=== PATIENT | female | born 1945 | race Caucasian/White ===

== ENCOUNTER 2020-01-01 14:24 | Outpatient (CLI) | payer MEDICARE, BC, SELFPAY ==
--- NOTE | ~2020-01-01 | CT_ITS ---
EXAMINATION: CT lung screening DATE: 01/01/2020 15:36 INDICATION: Personal history of tobacco dependence, current smoker with 40 pack year history TECHNIQUE: Computed tomography (CT) of the chest was performed without intravenous contrast. The dose -length product (DLP) was 157.29 mGy-cm. Automated exposure control and iterative reconstruction tech [employer] were employed. COMPARISON: 01/02/2019 FINDINGS: No suspicious pulmonary nodules are identified. There is mild dependent atelectasis. No foc al airspace opacities are identified. No pathologically enlarged thoracic lymph nodes are identified. The heart size is normal. Again noted is chronic anterior wedging in multiple lower thoracic vertebr al bodies without significant change. IMPRESSION: 1. Lung-RADS category 1: Negative. Continue annual screening with noncontrast low-dose chest CT in 12 months. Reviewed, dictated and finalized at location A. IMPRESSION: 1. Lung-RADS category 1: Negative. Continue annual screening with noncontrast l ow-dose chest CT in 12 months.
--- NOTE | ~2020-01-01 | MM_ITS ---
EXAMINATION: MM screening geraldine BI w ruddy HISTORY: Screening mammogram TECHNIQUE: Craniocaudal and mediolateral oblique 3-D tomosynthesis images were obtained and synthetic 2-D images were generated. CAD analysis was submitted and interpreted. COMPARISON: 11/14/2018, 07/27/2017, 06/30/2015 bilateral digital screening mammogram examinations BREAST PARENCHYMAL COMPOSITION: There are scattered areas of fibroglandular density. FINDINGS: There is no evidence of suspicious mass, calcification, or architectural distortion to sugg est malignancy in either breast. There has been no suspicious interval change. IMPRESSION: 1. No mammographic evidence of malignancy. 2. Recommend routine screening mammography in one year. BI-RADS Category 1: Negative Reviewed, dictated and finalized at location A.
--- NOTE | ~2020-01-01 | DEXA_ITS ---
Bone Density Report Name: Aruna Hernandez Age: 74 Sex: Female Ethnicity: White Date of : 1945 Indication: postmenopausal; height loss; Referring Provider: WESTON BRADLEY Study: Bone densitometry was performed. Exam Date: January 01, 2020 Accession number: [id number] Bone Density: Region BMD T-score Z-score Classification AP Spine (L1, L2, L3) 0.814 -1.9 0.3 Osteopenia Femoral Neck (Left) 0.673 -1.6 0.3 Osteopenia Total Hip (Left) 0.972 0.2 1.9 Normal Total Hip Bilateral Avg 0.938 -0.1 1.6 Normal Femoral Neck (Right) 0.746 -0.9 1.0 Normal Total Hip (Right) 0.904 -0.3 1.3 Normal World Health Organization criteria for BMD impression classify patients as: Normal (T-score at or above -1.0), Osteopenia (T-score between -1.0 and -2.5), or Osteoporosis (T-score at or below -2.5). 10-year Fracture Risk(1): Major Osteoporotic Fracture 9.7% Hip Fracture 1.5% Reported Risk Factors: [place] (), Neck BMD=0.673, BMI=36.6 (1) FRAX(R) Version 3.08. Fracture probability calculated for an untreated patient. Fracture probability may be lower if the patient has received treatment. Clinical Information Provided by Patient: Has used the following medications: Vitamin D, Calcium Patient maximum height was 66 Menopause Age: 52 No regular weight bearing exercise Drinks caffeinated beverages Onset of menses at age 16 Number of children 3 Impression: The patient has low bone mass, based on the Total Spine T-score. The patient has an estimated ten-year risk of hip fracture of 1.5% and an estimated ten-year risk of major fracture of 9.7%, based on the WHO FRAX algorithm. Discussion: BONE DENSITY IS LOW AT ONE OR MORE SKELETAL SITES. This patient's lowest T-score is low at one or more skeletal sites. It meets the World Health Organization's (WHO) criteria for ?low bone mass? (T-score between -1.0 and -2.5). The patient's 10-year risk of fracture as calculated by FRAX is less than the threshold where pharmacological therapy is recommended by the National Osteoporosis Foundation (NOF). However, all treatment decisions require clinical judgment and consideration of individual patient factors, including patient preferences, comorbidities, previous drug use, risk factors not captured in the FRAX model (e.g., frailty, falls, vitamin D deficiency, increased bone turnover, interval significant decline in bone density) and possible under or overestimation of fracture risk by FRAX. The patient should follow a healthful lifestyle (good nutrition with adequate calcium and vitamin D, and appropriate weight-bearing exercise). Follow-Up: Consider repeating this study in 2 to 3 years to reassess this patient's status, or sooner if there is some new clinical indication. Reported by: NOEMY on 01/01/2020 3:09:00 PM. ____
== END 2020-01-01 14:25 | disposition home or self-care (01) ==
LOC: ANHIMG 14:32
PROVIDERS: PCP Internal Medicine; Visit Provider Nurse Practitioner
DX: Z12.2 Encounter for screening for malignant neoplasm of respiratory organs (principal); Z87.891 Personal history of nicotine dependence; Z12.31 Encounter for screening mammogram for malignant neoplasm of breast; M85.852 Other specified disorders of bone density and structure, left thigh
CPT/HCPCS: 77063; 77067; 77080; G0297

== ENCOUNTER 2020-10-28 13:52 | Outpatient (CLI) | payer MEDICARE, BC, SELFPAY ==
--- NOTE | ~2020-10-28 | CT_ITS ---
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 TECHNIQUE: High resolution computed tomography (CT) of the right knee was performed without intraveno us contrast. Additional sagittal and coronal reconstructions were performed. Automated exposure contr ol and iterative reconstruction technique were employed. The dose-length product was 427.79 mGy-cm. COMPARISON: Right knee radiographs dated 10/21/2020 FINDINGS: Right total knee arthroplasty with patellar resurfacing which appears in near anatomic alignment. No fracture. There is thin rim of lucency measuring <1.5-2 mm in maximal thickness at the bone cement in terface of the femoral component which is within normal limits. There is mild osteolysis along the an terior rim of the medial tray of the tibial component and along the lateral margin of the lateral tra y of the tibial component. No evident lucency along the majority of the bone cement interface of the tibial component with small rim of lucency measuring <1-1.5 mm in maximal thickness along portions of the cement at the anterior aspect of the medial tray which also remains within normal limits. There appear to be small regions of ostial lysis deep to the caudal-most and medial sided of the 3 fixation process of the patellar component which appears relatively subtle due to the metallic streak artifac t from the tibial component. Thin sclerotic margins to the lytic regions can be better appreciated on the sunrise view of the prior radiographs. The lucent region surrounding the caudal-most post measur es approximately 8 x 8 mm in maximal transaxial dimensions. The lucent region around the medial post measures approximately 13 x 7 mm. This does raise some concern for potential loosening of the patella r component. Very small right knee joint effusion at the suprapatellar pouch. Sagittally oriented jennifer gical scar in the subcutaneous tissues anterior to the knee. Soft tissues are otherwise unremarkable. IMPRESSION: 1. Right total knee arthroplasty with patellar resurfacing with no findings to suggest loosening of t he femoral or tibial components. There are however small regions of osteolysis surrounding 2 of the p osts of the patellar component which does raise some concern for loosening. Reviewed, dictated and finalized at location A. IMPRESSION: 1. Right total knee arthroplasty with patellar resurfacing with no findings to suggest loosening of the femoral or tibial components. There are however small regions of osteolysis surrounding 2 of the posts of the patellar component whic h does raise some concern for loosening.
== END 2020-10-28 13:53 | disposition home or self-care (01) ==
PROVIDERS: PCP Internal Medicine; Visit Provider Orthopaedic Surgery
DX: T84.84XA Pain due to internal orthopedic prosthetic devices, implants and grafts, initial encounter (principal); Z96.651 Presence of right artificial knee joint
CPT/HCPCS: 73700

== ENCOUNTER 2020-11-04 16:31 | Outpatient (NON) | payer MEDICARE, BC, SELFPAY | END 2020-11-04 16:32 | disposition home or self-care (01) | LOC: ANHLAB 16:35 | PROVIDERS: PCP Internal Medicine; Visit Provider Orthopaedic Surgery | DX: T84.84XA Pain due to internal orthopedic prosthetic devices, implants and grafts, initial encounter (principal) | CPT/HCPCS: 87070; 87075; 87205 ==

== ENCOUNTER → 2021-01-27 13:37 | Outpatient (CLI) | payer MEDICARE, BC, SELFPAY ==
--- NOTE | ~2021-01-27 | MM_ITS ---
EXAMINATION: MM screening geraldine BI w ruddy HISTORY: Screening TECHNIQUE: Craniocaudal and mediolateral oblique 3-D tomosynthesis images were obtained and synthetic 2-D images were generated. CAD analysis was submitted and interpreted. COMPARISON: Comparison to multiple prior studies sequentially, with oldest reviewed study dated 10/2012. BREAST PARENCHYMAL COMPOSITION: There are scattered areas of fibroglandular density. FINDINGS: There are bilateral periareolar asymmetries. There are no suspicious calcifications or arch itectural distortion. IMPRESSION: 1. Bilateral breast asymmetries in the periareolar locations. 2. Additional mammographic views and possible breast ultrasound are recommended. BI-RADS Category 0: Incomplete: Needs additional imaging evaluation. Reviewed, dictated and finalized at location A. IMPRESSION: 1. Bilateral breast asymmetries in the periareolar locations. 2. Additional mammographic views and possible breast ultrasound are recommended . BI-RADS Category 0: Incomplete: Needs additional imaging evaluation.
== END ==
PROVIDERS: Visit Provider Nurse Practitioner
DX: Z12.31 Encounter for screening mammogram for malignant neoplasm of breast (principal); R92.8 Other abnormal and inconclusive findings on diagnostic imaging of breast
CPT/HCPCS: 77063; 77067

== ENCOUNTER → 2021-03-03 09:01 | Outpatient (CLI) | payer MEDICARE, BC, SELFPAY ==
--- NOTE | ~2021-03-03 | MM_ITS ---
EXAMINATION: MM diagnostic geraldine BI w ruddy HISTORY: Bilateral periareolar asymmetries on screening mammogram TECHNIQUE: Additional 3-D tomosynthesis images of the breasts were performed and synthetic 2-D images were generated. CAD analysis was submitted and interpreted. COMPARISON: 01/27/2021, 01/01/2020, 11/14/2018 BREAST PARENCHYMAL COMPOSITION: There are scattered areas of fibroglandular density. FINDINGS: There is a return to baseline fibroglandular appearance with spot compression of the breast s in the areas questioned on screening mammogram. IMPRESSION: 1. No mammographic evidence of malignancy. 2. Recommend routine screening mammography in one year. BI-RADS Category 1: Negative Reviewed, dictated and finalized at location A.
== END ==
PROVIDERS: PCP Internal Medicine; Visit Provider Nurse Practitioner
DX: R92.8 Other abnormal and inconclusive findings on diagnostic imaging of breast (principal)
CPT/HCPCS: 77062; 77066; G0279

== ENCOUNTER 2021-04-15 16:10 | Emergency (ER) | payer MEDICARE, BC, SELFPAY ==
--- NOTE | ~2021-04-15 | XR_ITS ---
EXAMINATION: XR chest 1V portable EXAM DATE: 04/15/2021 16:41 INDICATION: shortness of breath, CP/ Bodyaches X1 Day TECHNIQUE: Frontal and lateral projections of the chest obtained and reviewed. Comparison is made to prior examination from 09/12/18. FINDINGS: The lungs are clear. There are no pleural effusions. There is cardiomegaly There is no p neumothorax suspected. The bones and soft tissues are unremarkable. IMPRESSION: Cardiomegaly. Reviewed, dictated and finalized at location A. IMPRESSION: Cardiomegaly.
[2021-04-15 16:22] VITALS: BP 170/90; PULSE 76; RESP 19; TEMP 37.6; O2SAT 97
[2021-04-15 16:42] VITALS: PULSE 70
[2021-04-15 16:44] VITALS: BP 148/64; PULSE 72; RESP 18; O2SAT 97
[2021-04-15 16:51] LABS: Basophils Percent Auto 0.3 % (0.2-1.2); Eosinophils Percent Auto 0.4 % (0-4.4); Hematocrit 38.1 % (37.0-47.0); Hemoglobin 12.7 g/dL (12.0-15.0); Immature Granulocyte Absolute 0.04 K/mm3 (0.00-0.031); Immature Granulocyte Percent A 0.4 % (0-0.5); Lymphocytes Absolute Auto 0.92 K/mm3 (0.9-3.2); Lymphocytes Percent Auto 8.3 % (18.3-44.2); Mean Corpuscular HGB Conc 33.3 g/dl (32-36); Mean Corpuscular Hemoglobin 30.2 pg (26-34); Mean Corpuscular Volume 90.5 fl (80-100); Mean Platelet Volume 10.3 fl (7.4-10.4); Monocytes Absolute Auto 0.8 K/mm3 (0.1-0.6); Monocytes Percent Auto 7.5 % (2.6-8.5); Neutrophils Absolute Auto 9.2 K/mm3 (1.3-6.7); Neutrophils Percent Auto 83.1 % (45.5-73.1); Platelet Count Result 239 k/mm3 (150-375); Red Blood Count 4.21 M/mm3 (4.2-5.4); Red Cell Distribution Width 12.4 % (11.5-14.5); White Blood Count 11.1 K/mm3 (4.5-10.0)
[2021-04-15] MEDS: SODIUM CHLORIDE 0.9% IV 1,000 ML 999 ML IV CONT (16:56)
[2021-04-15 16:59] LABS: Alanine Aminotransferase 19 U/L (4-35); Albumin Level 4.6 g/dL (3.5-5.1); Alkaline Phosphatase 107 U/L (38-126); Anion Gap 8 mmol/L (8-16); Aspartate Amino Transferase 38 U/L (14-36); Bilirubin,Total 1.3 mg/dL (0.2-1.3); Blood Urea Nitrogen 14 mg/dL (7-17); Carbon Dioxide 25 mmol/L (22-30); Chloride 104 mmol/L (98-107); Estimated CRCL calculation 77 ml/min; Estimated Glomerular Filt Rate > 60; Glucose 116 mg/dL (65-110); Lipase 47 U/L (23-300); Magnesium 1.8 mg/dL (1.6-2.3); Potassium 3.9 mmol/L (3.4-5.0); Sodium 137 mmol/L (137-145)
[2021-04-15 17:03] LABS: INR 0.9; Prothrombin Time 11.9 Seconds (11.1-14.7)
[2021-04-15 17:04] LABS: Partial Thromboplastin Time 26.5 SECONDS (22.3-36.8)
[2021-04-15 17:10] LABS: Troponin I < 0.012 ng/mL (0.000-0.034)
--- NOTE | 2021-04-15 17:22 | ED.WEAKNESS ---
HPI - Weakness General Chief complaint: Weakness Stated complaint: chest pain, dizziness, malaise Time Seen by Provider: 04/15/21 16:18 History of Present Illness HPI Narrative: 75 year old female complains of weakness, fatigue and pleuritic chest pain for 2 days. Patient woke up this morning and all symptoms worse. No fever, no vomiting, no shortness of breath, no nausea, tolerating fluids and medications. No abdominal pain, no dysuria, no flank pain, no hematuria, no leg swelling, no recent falls. Patient works at [employer] and is worried about expsosure to [employer]. Able to ambulate without difficulty, taking all medications. MD Complaint: lack of energy Related Data Home Medications Medication Instructions Recorded Confirmed aspirin 81 mg tablet,delayed 81 mg PO DAILY 06/07/19 12/31/20 release omega 3-wdu-aip-fish oil 1,000 mg 1 cap PO BID 06/07/19 12/31/20 (120 mg-180 mg) capsule glucosamine-chondroitin 250 mg-200 2 tablet PO BID tablet 12/18/19 12/31/20 mg tablet zinc gluconate-vitamin C [zinc] PO 10/21/20 12/31/20 Allergies Allergy/AdvReac Type Severity Reaction Status Date / Time estrogens, conjugated Allergy Unknown Rash Verified 12/31/20 11:01 simvastatin Allergy Unknown Muscle Pain Verified 12/31/20 11:01 Review of Systems Review of Systems: CONSTITUTIONAL: no fever, no weight loss, no confusion EYES: no vision changes, no eye pain ENT: no rhinorrhea, no sore throat, no difficulty swallowing CARDIOVASCULAR: no chest pain, no leg edema, no palpitations RESPIRATORY: positive for cough, no shortness of breath, no hemoptysis GASTROINTESTINAL: no abdominal pain, no nausea, no vomiting, no diarrhea GENITOURINARY: no flank pain, no dysuria, no hematuria SKIN: no rash, no jaundice MUSCULOSKELETAL: no back pain, no trauma. NEUROLOGIC: No headache, no dizziness, no focal weakness PSYCHIATRIC: No hallucinations, no suicidal ideation PMFSH Past Medical History Medical History Abdominal pain Anxiety Chest tightness COVID-19 Dizziness Light headedness Painful total knee replacement, right Screening for breast cancer Screening for colon cancer Screening for osteoporosis SOB (shortness of breath) Urinary frequency Ventral hernia without obstruction or gangrene Wears glasses Surgical History Surgical History History of appendectomy 1963 History of hernia repair 2018 History of knee replacement September 2014 History of vascular surgery 2014 Family History Family History Father Family history of heart disease in male family member before age 55 Mother Family history of heart disease in male family member before age 55 Other Arthritis Cerebrovascular accident Family history of cardiovascular disease Family history of malignant neoplasm Family history of malignant neoplasm of breast Heart disease Hypertension Social History Social History Smoking packs per day: 1 Smoking cigarettes per day: 20.0 Years smoked: 50 Smoking pack-years: 50.00 Smoking status: Former smoker Smoking end date: 08/12/16 Alcohol intake: current Alcohol use details: social Substance use: never Substance use type: does not use Exam Narrative: General: alert, afebrile, answering all questions appropriately Head: normocephalic, atraumatic Eyes: EOMI bilaterally, anicteric, no injection ENT: moist mucous membranes, oropharynx patent, no rhinorrhea Neck: supple, trachea midline, no JVD Chest: equal chest rise bilaterally, no chest wall trauma noted Lungs: clear to auscultation bilaterally, respirations unlabored CV: regular rate, no CLIFF B, calf size equal bilaterally Abd: soft, non-distended, non-tender, no rebound, no gaurding Back: no lumbar bony tenderness. paraspinal mus
--- NOTE | 2021-04-15 17:23 | ECG_ITS ---
Measurements Intervals [place] Rate: 76 P: 26 [place]: 179 QRS: -8 QRSD: 93 T: 15 QT: 364 QTc: 410 Interpretive Statements SINUS RHYTHM VOLTAGE CRITERIA FOR LVH BASELINE ARTIFACT- I, II, III, AVR, AVL, AVF, V4 BORDERLINE ECG Electronically Signed On 04-15-2021 19:12:18 CDT by Chiki Santoro D.O.
[2021-04-15 17:28] LABS: Add Urine Microscopic? YES; Appearance Urine Clear (Clear); Bacteria Urine Trace /hpf; Bilirubin Urine Negative (Negative); Blood Urine 3+ (Negative); Color Urine Yellow (Yellow); Glucose Urine UA Negative (Negative); Ketones Urine Negative (Negative); Leukocyte Esterase Ur Trace LEU/UL (Negative); Mucus Urine Rare /lpf; Nitrate Urine Negative (Negative); Protein Urine Negative (Negative); Specific Grav Ur 1.014 (1.001-1.035); Urobilinogen Urine Negative mg/dL (<2.0)
[2021-04-15 18:04] VITALS: BP 170/90; PULSE 88; RESP 18; O2SAT 98
[2021-04-16 18:04] LABS: SARS-CoV-2 RNA PCR Negative
== END 2021-04-15 18:10 | disposition home or self-care (01) ==
PROVIDERS: Emergency Provider Emergency Medicine; PCP Internal Medicine
DX: T73.2XXA Exhaustion due to exposure, initial encounter (principal); Z20.822 Contact with and (suspected) exposure to COVID-19; I10 Essential (primary) hypertension; K21.9 Gastro-esophageal reflux disease without esophagitis; E78.00 Pure hypercholesterolemia, unspecified; Z86.16 Personal history of COVID-19; Z96.651 Presence of right artificial knee joint; Z79.82 Long term (current) use of aspirin; Z87.891 Personal history of nicotine dependence; R94.31 Abnormal electrocardiogram [ECG] [EKG]
CPT/HCPCS: 36415; 71045; 80053; 81001; 83690; 83735; 84484; 85025; 85610; 85730; 87804; 93005; 96360; 99284; C9803; J7030; U0003; U0005

== ENCOUNTER → 2021-04-18 03:40 | Outpatient (CLI) | payer MEDICARE, BC, SELFPAY ==
[2021-04-18 17:41] LABS: SARS-CoV-2 RNA PCR Negative
== END ==
PROVIDERS: PCP Internal Medicine; Visit Provider Internal Medicine
DX: R68.89 Other general symptoms and signs (principal); Z20.822 Contact with and (suspected) exposure to COVID-19
CPT/HCPCS: C9803; U0003; U0005

== ENCOUNTER → 2021-07-31 01:58 | Outpatient (CLI) | payer MEDICARE, BC, SELFPAY ==
[2021-07-31 21:12] LABS: SARS-CoV-2 RNA PCR Positive
== END ==
PROVIDERS: PCP Internal Medicine; Visit Provider Internal Medicine
DX: U07.1 COVID-19 (principal)
CPT/HCPCS: C9803; U0003; U0005

== ENCOUNTER 2021-10-14 10:09 | Outpatient (CLI) | payer MEDICARE, BC, SELFPAY ==
--- NOTE | ~2021-10-14 | XR_ITS ---
EXAMINATION: XR UGI w barium swallow EXAM DATE: 10/14/2021 10:51 INDICATION: R13.10 - Dysphagia, unspecified. TECHNIQUE: Standard single and double contrast barium esophagram and upper GI examination was perform ed by radiologist Dio Mccormack M.D. Pulsed dose reduction fluoroscopy was used with fluoroscopic time of 0.6 minutes. The DAP for this procedure was 1.6 Gycm2. A total of 114 images obtained for the e xam. Comparison is made to prior examination from 05/15/2010. FINDINGS: The pharynx is symmetric and without evidence of mass lesion or mucosal irregularity. Ther e is no esophageal stricture, diverticulum or mass identified. There is small sliding gastroesophage al hiatal hernia. Reflux was not specifically demonstrated on this exam. The stomach has a normal appearance without evidence of mass lesion, ulceration or filling defect. T here is normal rugal fold pattern. The duodenum and duodenal sweep are normal in appearance. IMPRESSION: Small sliding gastroesophageal hiatal hernia. Reviewed, dictated and finalized at location A.
== END 2021-10-14 10:10 | disposition home or self-care (01) ==
LOC: ANHIMG 10:10
PROVIDERS: PCP Internal Medicine; Visit Provider Internal Medicine
DX: R13.10 Dysphagia, unspecified (principal); K44.9 Diaphragmatic hernia without obstruction or gangrene
CPT/HCPCS: 74240

== ENCOUNTER → 2022-07-10 11:51 | Outpatient (CLI) | payer MEDICARE, BC, SELFPAY ==
--- NOTE | ~2022-07-10 | MM_ITS ---
EXAMINATION: MM screening geraldine BI w ruddy HISTORY: Screening mammogram TECHNIQUE: Craniocaudal and mediolateral oblique 3-D tomosynthesis images were obtained and synthetic 2-D images were generated. CAD analysis was submitted and interpreted. COMPARISON: 03/03/2021 bilateral diagnostic mammogram 01/27/2021, 01/01/2020 bilateral screening mammogram BREAST PARENCHYMAL COMPOSITION: There are scattered areas of fibroglandular density. FINDINGS: There is no evidence of suspicious mass, calcification, or architectural distortion to sugg est malignancy in either breast. There has been no suspicious interval change. IMPRESSION: 1. No mammographic evidence of malignancy. 2. Recommend routine screening mammography in one year. BI-RADS Category 1: Negative Reviewed, dictated and finalized at location A. CRIPTION CLERK LENSES
== END ==
PROVIDERS: PCP Internal Medicine; Visit Provider Internal Medicine
DX: Z12.31 Encounter for screening mammogram for malignant neoplasm of breast (principal)
CPT/HCPCS: 77063; 77067

== ENCOUNTER → 2023-08-20 12:18 | Outpatient (CLI) | payer MEDICARE, BC, SELFPAY ==
--- NOTE | ~2023-08-20 | MM_ITS ---
EXAMINATION: MM screening geraldine BI w ruddy HISTORY: Screening mammogram TECHNIQUE: Craniocaudal and mediolateral oblique 3-D tomosynthesis images were obtained and synthetic 2-D images were generated. CAD analysis was submitted and interpreted. COMPARISON: 07/10/2022 bilateral screening mammogram 03/03/2021 diagnostic bilateral mammogram 01/27/2021, 01/01/2020 bilateral screening mammogram examinations BREAST PARENCHYMAL COMPOSITION: There are scattered areas of fibroglandular density. FINDINGS: There is no evidence of suspicious mass, calcification, or architectural distortion to sugg est malignancy in either breast. There has been no suspicious interval change. IMPRESSION: 1. No mammographic evidence of malignancy. 2. Recommend routine screening mammography in one year. BI-RADS Category 1: Negative Reviewed, dictated and finalized at location A. ING METER SERVICER
== END ==
PROVIDERS: PCP Nurse Practitioner; Visit Provider Nurse Practitioner
DX: Z12.31 Encounter for screening mammogram for malignant neoplasm of breast (principal)
CPT/HCPCS: 77063; 77067

== ENCOUNTER 2023-08-27 00:04 | Day surgery (SDC) | payer MEDICARE, BC, SELFPAY ==
[2023-08-18 08:49] VITALS: BMI 36.1
--- NOTE | 2023-08-25 14:27 | SUR.PREOP ---
Patient called regarding upcoming procedure. Reviewed preop instructions, appointment times, and procedure prep.
--- NOTE | 2023-08-26 14:02 | PM.HPGS ---
History of Present Illness History of Present Illness Consent: Risks, benefits, and alternatives have been discussed and questions answered. Patient agrees to proceed with procedure. Chief complaint: GERD Narrative: Aruna Henrandez is a 77 year old female Referred for investigation of persistent acid reflux symptoms. she has had increasing difficulty swallowing and affect recently went to emergency room when she had food that would not go down. He did finally pass while she was in the emergency room. A CT scan was done and she was told that she has inflammation of the esophagus. Review of Systems Review of Systems: All systems reviewed & are unremarkable except as noted in HPI and below PMFSH Past Medical History Medical History Abdominal pain Anxiety Chest tightness COVID-19 Dizziness Essential (primary) hypertension Hiatal hernia with GERD History of [place] (myocardial infarction) Hypertensive chronic kidney disease with stage 1 through stage 4 chronic kidney disease, or unspecified chronic kidney disease Light headedness Obesity Other and unspecified hyperlipidemia Painful total knee replacement, right Personal history of nicotine dependence PVD (peripheral vascular disease) SOB (shortness of breath) Urinary frequency Ventral hernia without obstruction or gangrene Wears glasses Surgical History Surgical History History of appendectomy 1963 History of hernia repair 2019 History of knee replacement September 2014 History of vascular surgery 2014 Family History Family History Father Family history of heart disease in male family member before age 55 Mother Family history of heart disease in male family member before age 55 Other Arthritis Cerebrovascular accident Family history of cardiovascular disease Family history of malignant neoplasm Family history of malignant neoplasm of breast Heart disease Hypertension Social History Social History Smoking packs per day: 1 Smoking cigarettes per day: 20.0 Years smoked: 55 Smoking pack-years: 55.00 Smoking status: Former smoker Tobacco type: cigarettes Smoking end date: 08/12/16 Alcohol intake: current Alcohol use details: social Substance use: never Substance use type: does not use Lack of Transportation: No Lack of Food: Never True Current Housing: I Have Housing Concerned About Future Housing: No Difficulty Paying Gas/Electric Bills: No Difficulty Paying for Meds: No Currently Unemployed: No Education: High School Diploma/GED Difficulty w/ Childcare or Family Care: No Living arrangements: with family Spiritual care concerns: No Meds Home Medications and Allergies Home Medications Medication Instructions Recorded Confirmed Type aspirin 81 mg tablet,delayed 81 mg PO DAILY 06/07/19 08/18/23 History release (Aspir-) glucosamine HCl-vitamin D3 1,500 2 tablet PO DAILY 12/14/22 08/18/23 History mg-200 unit tablet omega-3 fatty acids 2,000 mg PO DAILY 12/14/22 08/18/23 History metoprolol succinate 50 mg See Rx Instructions .Route 08/04/23 08/27/23 Rx tablet,extended release 24 hr .COMPLEX #90 tabs ascorbic acid (vitamin C) 500 mg 500 mg PO DAILY 08/18/23 08/18/23 History capsule zinc 1 tablet PO DAILY 08/18/23 08/18/23 History lisinopril 10 mg tablet 10 mg PO DAILY #90 tabs 08/19/23 Rx pantoprazole 40 mg tablet,delayed 40 mg PO QAM #30 tabs 08/27/23 Rx release Allergies Allergy/AdvReac Type Severity Reaction Status Date / Time estrogens, conjugated Allergy Intermediate Rash Verified 08/27/23 11:15 simvastatin Allergy Intermediate Muscle Pain Verified 08/27/23 11:15 Exam Const: General: alert Orientation/consciousness: patient oriented x3 Resp: [facility]
[2023-08-27 11:15] VITALS: BP 151/74; PULSE 63; RESP 18; TEMP 36.1; O2SAT 98
[2023-08-27] MEDS: LACTATED RINGERS 1,000 ML 150 ML IV CONT (11:27)
--- NOTE | 2023-08-27 11:52 | WPDANESEPPF ---
Anes - Initial Pre Proc Eval Procedure: Operation Date: 08/27/23 13:00 Proposed Procedures p Esophagogastroduodenoscopy - Javan Torres MD Date/Time: 08/27/23 11:52 Surgeon: Javan Torres MD Pre Op Diagnosis: GERD Patient Data Age: 77 Gender: F Height: 1.63 m Weight: 98.4 kg Last Vital Signs Temp 97 F L 08/27/23 11:15 Pulse 63 08/27/23 11:15 Resp 18 08/27/23 11:15 BP 151/74 H 08/27/23 11:15 Pulse Ox 98 08/27/23 11:15 O2 Del Method Room Air 08/27/23 11:15 Allergies Allergy/AdvReac Type Severity Reaction Status Date / Time estrogens, conjugated Allergy Intermediate Rash Verified 08/27/23 11:15 simvastatin Allergy Intermediate Muscle Pain Verified 08/27/23 11:15 Home Medications Medication Instructions Recorded Confirmed Type aspirin 81 mg tablet,delayed 81 mg PO DAILY 06/07/19 08/18/23 History release (Aspir-) glucosamine HCl-vitamin D3 1,500 2 tablet PO DAILY 12/14/22 08/18/23 History mg-200 unit tablet omega-3 fatty acids 2,000 mg PO DAILY 12/14/22 08/18/23 History metoprolol succinate 50 mg See Rx Instructions .Route 08/04/23 08/27/23 Rx tablet,extended release 24 hr .COMPLEX #90 tabs ascorbic acid (vitamin C) 500 mg 500 mg PO DAILY 08/18/23 08/18/23 History capsule sucralfate 1 gram tablet 1 g PO TIDWMEAL 08/18/23 08/18/23 History zinc 1 tablet PO DAILY 08/18/23 08/18/23 History lisinopril 10 mg tablet 10 mg PO DAILY #90 tabs 08/19/23 Rx Patient hx anesthesia problems: none Family hx anesthesia problems: none Results Review: All pre-operative results and documents have been reviewed as part of the pre-operative evaluation. [facility] Past Medical History Medical History Abdominal pain Anxiety Chest tightness COVID-19 Dizziness Essential (primary) hypertension Hiatal hernia with GERD History of [place] (myocardial infarction) Hypertensive chronic kidney disease with stage 1 through stage 4 chronic kidney disease, or unspecified chronic kidney disease Light headedness Obesity Other and unspecified hyperlipidemia Painful total knee replacement, right Personal history of nicotine dependence PVD (peripheral vascular disease) SOB (shortness of breath) Urinary frequency Ventral hernia without obstruction or gangrene Wears glasses Surgical History Surgical History History of appendectomy 1962 History of hernia repair 2019 History of knee replacement September 2014 History of vascular surgery 2014 Family History Family History Father Family history of heart disease in male family member before age 55 Mother Family history of heart disease in male family member before age 55 Other Arthritis Cerebrovascular accident Family history of cardiovascular disease Family history of malignant neoplasm Family history of malignant neoplasm of breast Heart disease Hypertension Social History Social History Smoking packs per day: 1 Smoking cigarettes per day: 20.0 Years smoked: 55 Smoking pack-years: 55.00 Smoking status: Former smoker Tobacco type: cigarettes Smoking end date: 08/12/16 Alcohol intake: current Alcohol use details: social Substance use: never Substance use type: does not use Lack of Transportation: No Lack of Food: Never True Current Housing: I Have Housing Concerned About Future Housing: No Difficulty Paying Gas/Electric Bills: No Difficulty Paying for Meds: No Currently Unemployed: No Education: High School Diploma/GED Difficulty w/ Childcare or Family Care: No Living arrangements: with family Spiritual care concerns: No Anes - Eval Final PreProcedure Day of Procedure 08/27/23 11:52 Patient weight: obese Heart: regular rate and rhythm Lungs: ema
[2023-08-27 12:30] VITALS: BP 170/92; PULSE 72; RESP 22; O2SAT 96
[2023-08-27 12:40] VITALS: BP 174/96; PULSE 72; RESP 24; O2SAT 98
[2023-08-27 12:50] VITALS: BP 191/98; PULSE 68; RESP 26; O2SAT 100
--- NOTE | 2023-08-27 13:16 | SUR.PHASEII ---
1250 Dr. Fernando notified of pt blood pressure 191/98. Pt instructed to take home medication Lisinopril upon discharge as ordered by Dr. Fernando.
== END 2023-08-27 13:09 | disposition home or self-care (01) ==
PROVIDERS: PCP Nurse Practitioner; Visit Provider Internal Medicine Gastroenterology
PROC: 0DJ08ZZ Inspection of Upper Intestinal Tract, Via Natural or Artificial Opening Endoscopic (ICD-10-PCS; CPT 43235; principal; 2023-08-27 13:00)
DX: K21.00 Gastro-esophageal reflux disease with esophagitis, without bleeding (principal); K44.9 Diaphragmatic hernia without obstruction or gangrene; K22.2 Esophageal obstruction; I12.9 Hypertensive chronic kidney disease with stage 1 through stage 4 chronic kidney disease, or unspecified chronic kidney disease; N18.9 Chronic kidney disease, unspecified; F41.9 Anxiety disorder, unspecified; I25.2 Old myocardial infarction; E78.5 Hyperlipidemia, unspecified; R35.0 Frequency of micturition; E66.9 Obesity, unspecified; Z68.37 Body mass index [BMI] 37.0-37.9, adult; Z79.82 Long term (current) use of aspirin; Z98.890 Other specified postprocedural states; Z87.891 Personal history of nicotine dependence; Z86.79 Personal history of other diseases of the circulatory system; Z80.3 Family history of malignant neoplasm of breast; Z82.49 Family history of ischemic heart disease and other diseases of the circulatory system
CPT/HCPCS: 43249; 87081; 88305; C1726; J2704; J7120

== ENCOUNTER 2023-12-22 08:57 | Outpatient (CLI) | payer MEDICARE, BC, SELFPAY ==
--- NOTE | ~2023-12-22 | XR_ITS ---
Left Knee Technique: AP, lateral, and sunrise views were obtained. Clinical History: Pain Findings: No fracture or dislocation is seen. There is medial compartment narrowing. There is probabl e patellofemoral compartment narrowing with moderate osteophyte formation. There is moderate joint li ne osteophyte formation, especially medially.. Soft tissues are unremarkable. No joint effusion is se en. Impression: Moderate to advanced degenerative change of the medial and patellofemoral compartment. Mild to modera te degenerative change of the lateral compartment. Reviewed, dictated and finalized at location M. Impression: Moderate to advanced degenerative change of the medial and patellofemoral max rtment. Mild to moderate degenerative change of the lateral compartment.
== END 2023-12-22 08:58 ==
LOC: MICIMG 08:58
PROVIDERS: PCP Nurse Practitioner; Visit Provider Nurse Practitioner
DX: M17.12 Unilateral primary osteoarthritis, left knee (principal)
CPT/HCPCS: 73564

== ENCOUNTER 2024-12-16 10:36 | Outpatient (CLI) | payer MEDICARE, BC, SELFPAY ==
--- NOTE | ~2024-12-16 | MM_ITS ---
EXAMINATION: MM screening geraldine BI w ruddy HISTORY: Screening TECHNIQUE: Craniocaudal and mediolateral oblique 3-D tomosynthesis images were obtained and synthetic 2-D images were generated. CAD analysis was submitted and interpreted. COMPARISON: Comparison to multiple prior studies sequentially, with oldest reviewed study dated 12/2018. BREAST PARENCHYMAL COMPOSITION: Not dense: There are scattered areas of fibroglandular density. FINDINGS: There is no evidence of suspicious mass, calcification, or architectural distortion to sugg est malignancy in either breast. There has been no suspicious interval change. IMPRESSION: 1. No mammographic evidence of malignancy. 2. Recommend routine screening mammography in one year. BI-RADS Category 1: Negative Reviewed, dictated and finalized at location B.
== END 2024-12-16 10:37 | disposition home or self-care (01) ==
LOC: MICIMG 10:37
PROVIDERS: PCP Nurse Practitioner; Visit Provider Internal Medicine
DX: Z12.31 Encounter for screening mammogram for malignant neoplasm of breast (principal)
CPT/HCPCS: 77063; 77067

== ENCOUNTER 2025-06-08 09:13 | Emergency (ER) | payer MEDICARE, BC, SELFPAY ==
--- NOTE | ~2025-06-08 | XR_ITS ---
EXAMINATION: XR chest 2V, 06/08/2025 10:00 DOOR TO DOOR SELLING AGENT HISTORY: cough COMPARISON: No comparisons available. Technique: 2 views obtained. Findings: The lungs are clear, no effusion. No pneumothorax. Heart is normal size. Mediastinal and hilar contours are within normal limits. Bony thorax no acute abnormality. Impression: No acute cardiopulmonary abnormality. Reviewed, dictated and finalized at location P. TO DOOR SELLING AGENT Impression: No acute cardiopulmonary abnormality.
[2025-06-08 09:30] VITALS: BP 142/84; PULSE 75; RESP 16; TEMP 36.2; O2SAT 97
--- NOTE | 2025-06-08 09:41 | ED.URI ---
HPI - URI/Sore Throat General Chief Complaint: Upper Respiratory Infection Stated Complaint: Sore throat, pain in chest, can't sleep Source: patient, RN notes reviewed and old records reviewed Mode of arrival: ambulatory Limitations: no limitations History of Present Illness HPI Narrative: 79 year old female who presents to [facility] with complaints of sore throat, cough, headache, and some dizziness, and diarrhea since Wednesday. Patient reports that she called her physician and was prescribed some Amoxicillin but she doesn't feel she is getting any better. Patient reports that she has had pnumonia in the past and is afraind that is what is going on. She also wanted to be tested for strep COVID and Flu.Patient denies any shortness of breath or any fevers chills or body aches. MD elicited complaint: cough, sore throat and other (headache,diarrhea,dizziness) Onset (ago): day(s) (4 days) Severity: moderate Pain scale (0-10): 4 Able to tolerate fluids by mouth: Yes Treatments prior to arrival: other (on Amoxicillin and has taken V[facility] [place] cold medication) Related Data Home Medications ?Medication ?Instructions ?Recorded ?Confirmed ?Last Taken ?Type aspirin 81 mg tablet,delayed 81 mg PO DAILY 06/07/19 12/07/24 Unknown History release (Aspir-) glucosamine HCl-vitamin D3 1,500 2 tablet PO DAILY 12/14/22 12/07/24 Unknown History mg-200 unit tablet omega-3 fatty acids 2,000 mg PO DAILY 12/14/22 12/07/24 Unknown History ascorbic acid (vitamin C) 500 mg 500 mg PO DAILY 08/18/23 12/07/24 Unknown History capsule zinc 1 tablet PO DAILY 08/18/23 12/07/24 Unknown History turmeric 400 mg capsule mg PO 12/07/24 12/07/24 Unknown History Allergies Allergy/AdvReac Type Severity Reaction Status Date / Time estrogens, conjugated Allergy Intermediate Rash Verified 06/08/25 09:49 simvastatin Allergy Intermediate Muscle Pain Verified 06/08/25 09:49 Review of Systems Review of Systems: CONSTITUTIONAL: reports malaise, no chills, sweats, or fever. EYES: Denies visual changes, redness, or discharge. ENT: Reports rhinorrhea, congestion, sinus pain,no otalgia and +sore throat. CARDIOVASCULAR: Denies chest pain, palpitations, or edema. RESPIRATORY: Reports cough.? Denies dyspnea. GASTROINTESTINAL: Denies abdominal pain, nausea, vomiting, diarrhea SKIN: Denies rash or itching. MUSCULOSKELETAL: Denies myalgia. NEUROLOGIC: Reports headache. All systems reviewed & are unremarkable except as noted in HPI and below [facility] Past Medical History Medical History BMI 38.0-38.9,adult Obesity Ventral hernia without obstruction or gangrene Painful total knee replacement, right Anxiety Urinary frequency Abdominal pain Chest tightness SOB (shortness of breath) Wears glasses Light headedness Dizziness COVID-19 PVD (peripheral vascular disease) Essential (primary) hypertension Hiatal hernia with GERD History of [place] (myocardial infarction) Hypertensive chronic kidney disease with stage 1 through stage 4 chronic kidney disease, or unspecified chronic kidney disease Other and unspecified hyperlipidemia Personal history of nicotine dependence Surgical History Surgical History History of hernia repair 2018 History of vascular surgery 2014 History of knee replacement September 2014 History of appendectomy 1963 Family History Family History Father Family history of heart disease in male family member before age 55 Acute myocardial infarction Cerebrovascular accident Mother Family history of heart disease in male family member before age 55 Thyroid activity decreased Obesity Sibling , 79 Covid-19 Lymphedema Breast cancer Sibling Rheumatic fever Other Arthritis Family history of cardiovascular disease Family history of malignant neoplasm Family history of malignant neoplasm of breast Heart disease Hypertension Social History Social History Smoking packs per day: 1 Smoking cigarettes per day: 20.0 Years smoked: 55 Smoking pack-years: 55.00 Smoking status: Former smoker Tobacco type: cigarettes Second hand tobacco smoke exposure: No Smoking end date: 08/12/16 Alcohol intake: current Alcohol use details: social Substance use: never Substance use type: does not use Lack of Transportation: No Lack of Food: Never True Current Housing: I Have Housing Concerned About Future Housing: No Difficulty Paying Gas/Electric Bills: No Difficulty Paying for Meds: No Currently Unemployed: No Education: High School Diploma/GED Difficulty w/ Childcare or Family Care: No Living arrangements: alone Occupation/Education: retired 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 There is no relevant family history pertinent to the presenting complaint Exam Narrative: GENERAL: Well-appearing, well-nourished, and in no acute distress. HEAD: Normocephalic EYES: PERRLA, conjunctivae clear ENT: Nares clear, turbinates edematous and erythematous, clear discharge, sinus pressure and headache, Mucous membranes moist. TM pearly wallis with dull light reflex bilaterally; no tragal tenderness. Oropharynx erythematous without lesions. Tonsils not enlarged and without exudate, no drooling, no hoarseness, no trismus, uvula midline.post nasal drainage NECK: Supple. No lymphadenopathy CHEST: Clear decreased to auscultation, breath sounds equal. No wheezing, rhonchi, rales, or stridor. No respiratory distress, speaks in full sentences.cough noted SAO2 97% on room air HEART: Regular rate and rhythm. No murmur heard. SKIN: Warm, dry, no rash. NEURO: Alert and oriented x3. PSYCH: Normal mood and affect Course Course Emergency Course: Patient is aware of diagnosis, understands and agrees to treatment plan.? Anticipatory guidance given.? Patient agrees to follow-up as directed and is aware of reasons to seek care at the emergency department. Portions of this record may have been created with voice recognition software Level of Care: Express Care Visit Vital Signs Vital signs: Vital Signs Temperature 36.2 C L 06/08/25 09:30 Pulse Rate 75 06/08/25 09:30 Respiratory Rate 16 06/08/25 09:30 Blood Pressure 142/84 H 06/08/25 09:30 Pulse Oximetry 97 06/08/25 09:30 Oxygen Delivery Room Air 06/08/25 09:30 Temperature 36.2 C L 06/08/25 09:30 Pulse Rate 75 06/08/25 09:30 Respiratory Rate 16 06/08/25 09:30 Blood Pressure 142/84 H 06/08/25 09:30 Pulse Oximetry 97 06/08/25 09:30 Oxygen Delivery Room Air 06/08/25 09:30 Reviewed MDM - URI/Sore Throat MDM Narrative Medical decision making narrative: Differential diagnosis considered: Barba virus, strep pharyngitis, allergic rhinitis, upper respiratory tract infection, sinusitis, rhinosinusitis, nasopharyngitis. viral pharyngitis, otitis media, otitis externa, pneumonia, bronchitis, viral cough syndrome, viral syndrome, and influenza.? Exam findings show no acute concerns or changes; patient is non-toxic appearing and is in no distress.? Patient is appropriate for outpatient treatment and follow-up. Differential Diagnosis Differential diagnosis: Likely upper respiratory infection, sinusitis, viral infection, bronchitis, influenza, pharyngitis and other (strep pharyngitis, COVID) Medical Records Attestation: I reviewed the patient's medical records. Lab Data Attestation: I reviewed the patient's lab results. Lab results narrative: strep negative,COVID antigen negative, influenza a and B negative strep culture set Labs: Lab Results 06/08/25 Range/Units 09:25 POC Influenza A Ag Negative (Negative) POC Influenza B Ag Negative (Negative) POC SARS CoV-2 Ag Negative (Negative) POC Grp A Strep Screen Negative (Negative) reviewed Imaging Data Attestation: I personally reviewed and interpreted this imaging study as follows: My impression: no acute cardiopulmonary abnormality Radiologist's impression: [place] [address] XRay Report Signed Patient: Aruna Hernandez : 1945 MR#: [id number] Age: 79 Acct:[id number] Loc: [facility] ADM Date: 06/08/[address]: Ordering Physician: Kayla Moser APRN Date of Service: 06/08/25 Procedure(s): XR chest 2V Accession Number(s): [id number] cc: Lenin Pitts DO; Kayla Moser APRN~ EXAMINATION: XR chest 2V, 06/08/2025 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 Technique: 2 views obtained. Findings: The lungs are clear, no effusion. No pneumothorax. Heart is normal size. Mediastinal and hilar contours are within normal limits. Bony thorax no acute abnormality. Impression: No acute cardiopulmonary abnormality. Reviewed, dictated and finalized at location P. T EVALUATION SUPERVISOR Please be advised this is a medical document. It is intended for [id number] communication. It is written in medical language and may contain unfamiliar abbreviations or verbiage. Medical documents are intended to carry relevant information, facts as evident, and the clinical opinion of the practitioner at the time of the encounter. This report may have been done utilizing a voice recognition system. Attempts have been made to correct errors. However, there may be uncorrected grammatical, spelling, and recognition errors present. The file time of this note does not necessarily represent the time of service. Dictated By: Sebas Hopper MD 06/08/25 1011 Signed By: <Electronically signed by Sebas Hopper MD in OV> Critical Care Time Critical Care Time Critical Care Time: No Discharge Plan Discharge Clinical Impression: URI (upper respiratory infection) Qualifiers: URI type: unspecified URI Qualified Code(s): J06.9 - Acute upper respiratory infection, unspecified Patient Disposition: Home Condition: Stable Instructions: Antibiotic Form, Upper Respiratory Infection (ED) Additional Instructions: Increase fluids especially juices and water [id number] cough and cold medicine of your choice for your symptoms Dmitri Muhammad for cough heat to the face 20-30 minutes 4-6 times a day for pain Salt water gargles, throat lozenges or throat sprays as desired Antibiotic as directed--finished the medication that was prescribed by your PCP Tylenol or Ibuprofen for any fever or pain If your symptoms persist, change or worsen significantly before you can contact your personal physician then please, without delay, go to the emergency department for further evaluation. Follow-up with PCP in 7-10 days or sooner if needed Follow up with PCP soon in regards to your blood pressure which is elevated above threshold for referral. Blood pressure above 120/80 may indicate pre-hypertension. 142/84 Patient Language: Hungarian Prescriptions: New benzonatate 200 mg capsule 200 mg PO TID PRN (Reason: cough) Qty: 14 0RF No Action turmeric 400 mg capsule PO aspirin [Aspir-81] 81 mg tablet,delayed release (DR/EC) 81 mg PO DAILY omega-3 fatty acids Capsule 2,000 mg PO DAILY glucosamine HCl-vitamin D3 1,500-200 mg-unit Tablet 2 tablet PO DAILY zinc Tablet,Chewable 1 tablet PO DAILY ascorbic acid (vitamin C) 500 mg Capsule 500 mg PO DAILY metoprolol succinate 50 mg tablet extended release 24 hr See Rx Instructions .ROUTE .COMPLEX Qty: 90 3RF Dose Instruction: Take 1 tablet by mouth once daily Rx Instructions: Take 1 tablet by mouth once daily lisinopril 10 mg tablet 10 mg PO DAILY Qty: 90 3RF Rx Instructions: Take 1 tablet by mouth once daily pantoprazole 40 mg tablet,delayed release (DR/EC) See Rx Instructions .ROUTE .COMPLEX Qty: 90 3RF Dose Instruction: TAKE 1 TABLET BY MOUTH IN THE MORNING Rx Instructions: TAKE 1 TABLET BY MOUTH IN THE MORNING amoxicillin-pot clavulanate 875-125 mg tablet 1 tablet PO BID 7 Days Qty: 14 0RF Follow-up/Referrals: Lenin Pitts DO [Primary Care Provider, Internal Medicine] Time of Disposition: 10:41 Quality Kevin Coma Scale Eyes: Open Verbal: Oriented and Alert Motor: Follows Commands Kevin Coma Total Score: 15
[2025-06-08 09:55] LABS: EDCOVIDSCREEN Negative (Negative); EDINFLUASCREEN Negative (Negative); EDINFLUBSCREEN Negative (Negative); EDSTREPNEGPOS1 Negative (Negative)
== END 2025-06-08 10:56 | disposition home or self-care (01) ==
PROVIDERS: Emergency Provider Registered Nurse; PCP Internal Medicine
DX: J06.9 Acute upper respiratory infection, unspecified (principal); Z20.822 Contact with and (suspected) exposure to COVID-19; I25.2 Old myocardial infarction; I12.9 Hypertensive chronic kidney disease with stage 1 through stage 4 chronic kidney disease, or unspecified chronic kidney disease; N18.9 Chronic kidney disease, unspecified; E78.49 Other hyperlipidemia; K21.9 Gastro-esophageal reflux disease without esophagitis; E66.9 Obesity, unspecified; Z68.36 Body mass index [BMI] 36.0-36.9, adult; Z86.16 Personal history of COVID-19; Z79.82 Long term (current) use of aspirin; Z87.891 Personal history of nicotine dependence
CPT/HCPCS: 71046; 87081; 87426; 87804; 87880; 99213; G0463